=== PATIENT | female | born 1980 | race Caucasian/White ===

== ENCOUNTER → 2017-08-02 | Outpatient (CLI) | payer OTHER ==
[~2017-08-02] MED LIST: IBUP800 PO; OXYACE5T PO; VICODIN 5-3001 EACH PO
== END | disposition home or self-care (01) ==
LOC: LAB SHORT 12:49 → LAB EV 12:49
DX: R30.0 Dysuria (principal)
CPT/HCPCS: 87070; 87205

== ENCOUNTER → 2020-12-17 | Outpatient (CLI) | payer OTHER | END | disposition home or self-care (01) | LOC: LAB SHORT 09:59 → LAB 09:59 | DX: N39.0 Urinary tract infection, site not specified (principal) | CPT/HCPCS: 87077; 87086; 87186 ==